=== PATIENT | female | born 1965 | race African-American/Black ===

== ENCOUNTER 2017-07-10 08:14 | Emergency (ER) | payer OTHER ==
[~2017-07-10] VITALS: Ht 182.9 cm; Wt 117.9 kg
[~2017-07-10 08:14] MED LIST: AMBIEN5 MG PO; ARTHROTEC 50 M1 EACH PO; BACLOFEN20 MG PO; BACTRIM DS TAB1 EACH PO; CLEOCIN HCL300 MG PO; DICLOFENAC SODI75 MG PO; ESCITALOPRAM OX20 MG PO; MECLIZINE HCL25 MG PO; METHOCARBAMOL750 MG PO; MINOCYCLINE HC100 M1 PO; NORCO 5-325 TA1 EACH PO; PERCOCET 5-3251 EACH PO; PHENDIMETRAZIN105 MG PO; PROMETHEGAN50 MG PR; ZOFRAN ODT4 MG SL; ZONISAMIDE25 MG PO
[2017-07-10] MEDS ORDERED: VITAMIN D250000 UNIT PO (08:40)
[2017-07-10] MEDS ORDERED: DULOXETINE HCL60 MG PO (08:41)
[2017-07-10] MEDS ORDERED: GABAPENTIN300 MG PO (08:41)
[2017-07-10] MEDS ORDERED: PHENTERMINE H37.5 M1 PO (08:41)
[2017-07-10] MEDS ORDERED: MINOCYCLINE HC100 MG PO (08:41)
[2017-07-10] MEDS ORDERED: DICLOFENAC SOD100 G1 TOP (08:42)
[2017-07-10] MEDS ORDERED: NORCO 7.5-3251 EACH PO (09:31)
[2017-07-11] MEDS ORDERED: KETOROLAC TROME10 MG PO (18:05)
== END 2017-07-10 10:00 | disposition home or self-care (01) ==
LOC: ED 08:14
DX: M25.511 Pain in right shoulder (principal); Z90.710 Acquired absence of both cervix and uterus; Z90.49 Acquired absence of other specified parts of digestive tract; Z98.890 Other specified postprocedural states; Z88.8 Allergy status to other drugs, medicaments and biological substances; Z79.899 Other long term (current) drug therapy
CPT/HCPCS: 73030; 96372; 99283; J1885

== ENCOUNTER 2017-07-11 16:41 | Emergency (ER) | payer OTHER ==
[~2017-07-11] VITALS: Ht 182.9 cm; Wt 117.9 kg
[~2017-07-11 16:41] MED LIST changes: +DICLOFENAC SOD100 G1 TOP; +DULOXETINE HCL60 MG PO; +GABAPENTIN300 MG PO; +MINOCYCLINE HC100 MG PO; +NORCO 7.5-3251 EACH PO; +PHENTERMINE H37.5 M1 PO; +VITAMIN D250000 UNIT PO
[2017-07-11] MEDS ORDERED: KETOROLAC TROME10 MG PO (18:05)
== END 2017-07-11 18:57 | disposition home or self-care (01) ==
LOC: ED 16:41
DX: M75.31 Calcific tendinitis of right shoulder (principal); Z90.710 Acquired absence of both cervix and uterus; Z90.49 Acquired absence of other specified parts of digestive tract; Z88.8 Allergy status to other drugs, medicaments and biological substances; Z98.890 Other specified postprocedural states
CPT/HCPCS: 96372; 99283; J1885

== ENCOUNTER 2017-08-01 05:45 | Day surgery (SDC) | payer OTHER ==
[~2017-08-01] VITALS: Ht 182.9 cm; Wt 117.9 kg
[~2017-08-01 05:45] MED LIST changes: +KETOROLAC TROME10 MG PO
--- NOTE | 2017-08-01 08:09 | NUR ---
08/01/17 0809 Harper Grubbs TO PACU, COUGHING NOTED. PROWICK DRESSING INTACT. PT DENIES PAIN OR NAUSEA.
[2017-08-01] MEDS ORDERED: OXYCODONE HCL5 MG PO (10:12)
--- NOTE | 2017-08-01 10:35 | NUR ---
PT ATE CRACKERS DRANK TEA. TOOK PAIN PILL FOR C/O HEADACHE. DENIES ANY SURGICAL PAIN. MOVES FINGERS HAS SOME TINGLY. CRYOCUFF HAS BEEN PLACED ON PT. SHE STATES SHE KNOWS HOW TO OPERATE HAS HAD BEFORE. WANTS TO GO HOME.
--- NOTE | 2017-08-08 07:01 | OR ---
[facility] [address] [place], [place] [address] Signed DATE OF OPERATION: 08/01/2017 SURGEON: Eveline Allan MD PREOPERATIVE DIAGNOSIS: Rotator cuff tendinitis, impingement, left. POSTOPERATIVE DIAGNOSIS: Rotator cuff tendinitis, impingement, left. PROCEDURE PERFORMED: Left shoulder arthroscopy with subacromial decompression, limited debridement and acromioplasty. SURGEON: Eveline Allan MD ASSISTANTS: 1. Julia Tinoco PA-C. 2. BAMBI Razo. Julia was present for the entire surgery and was critical for positioning, arm holding, and wound closure. ANESTHESIA: General with interscalene block. BLOOD LOSS: Minimal. IMPLANTS: None. BRIEF HISTORY: Joseline is a 51-year-old female with pain in her shoulder. She had undergone prior labral repair by me number of years ago. This was nonresponsive to treatment. Initially, her MRI showed calcific tendinitis, however, recent radiographs showed resolution of the calcium deposits, but continued pain, bursitis, and inability to use her arm. Risks, benefits, and alternatives were discussed with her and she elected to proceed. Electronically Signed By: EVELINE ALLAN MD 08/08/17 0701 PATIENT NAME: JOSELINE RICH OPERATIVE REPORT DATE OF : 69 PHYSICIAN: EVELINE ALLAN MD REPORT #: [id number] REPORT IS CONFIDENTIAL AND NOT TO BE RELEASED WITHOUT AUTHORIZATION [facility] [address] [place], [place] [address] Signed DESCRIPTION OF PROCEDURE: Once consent was obtained, she was taken to the operating room. After adequate anesthesia, she was placed in the beach chair position. All downside pressure points were well-padded. The left shoulder was prepped and draped in the standard sterile fashion. The shoulder was injected with 15 mL of 0.25% Marcaine with epinephrine as was the subacromial space. The prior posterior portal was incised and the scope was introduced in the shoulder. The shoulder showed mild synovitis throughout. The prior labral repair and sutures were intact and that healed adequately to the anterior glenoid. Undersurface of the rotator cuff was intact. Glenohumeral surfaces were intact. Biceps attachment rather were intact. Subacromial space showed marked thickening of the bursa with stranding scar bands and a type 3 to 3+ acromion. DESCRIPTION OF OPERATION: Diagnostic arthroscopy was undertaken as noted above. The scope was withdrawn from the shoulder, placed in the subacromial space and a mid-lateral portal was established and using a combination of the shaver and the Mitek vapor, the subacromial bursa was removed down to the rotator cuff and up to the acromion. The rotator cuff was noted to be completely intact. There were calcific residual granules of calcium in the bursa represented by cloudiness when you would hit certain spots in the bursa, as we were removing it. The undersurface of the acromion was quite hooked anteriorly. Using the shaver, we did flatten this anteriorly without detaching the deltoid substantially. This was checked by moving the camera to the lateral side and bringing the shaver in from the posterior portal indicating that it was quite flat. The scope was then withdrawn. All bleeders were cauterized using the vapor before removing the scope. The portals were closed with 3-0 nylon. Dressed with dressing. Her shoulder was injected with Toradol at the end of the case. She tolerated the procedure well. All sponge, needle, and instrument counts were correct. Eveline Allan MD BA/MODL /[id number] Electronically Signed By: EVELINE ALLAN MD 08/08/17 0701 PATIENT NAME: JOSELINE RICH ZOYA OPERATIVE REPORT DATE OF : 69 PHYSICIAN: EVELINE ALLAN MD REPORT #: [id number] REPORT IS CONFIDENTIAL AND NOT TO BE RELEASED WITHOUT AUTHORIZATION [facility] [address] [place] [address] [place] [address] Signed Electronically Signed By: EVELINE ALLAN MD 08/08/17 0701 PATIENT NAME: JOSELINE RICH OPERATIVE REPORT DATE OF : 69 PHYSICIAN: EVELINE ALLAN MD REPORT #: [id number] REPORT IS CONFIDENTIAL AND NOT TO BE RELEASED WITHOUT AUTHORIZATION
== END 2017-08-01 10:25 | disposition home or self-care (01) ==
LOC: DS 05:45
PROVIDERS: Specialist
PROC: 0RBK4ZZ Excision of Left Shoulder Joint, Percutaneous Endoscopic Approach (ICD-10-PCS; principal; 2017-08-01 06:45)
DX: M75.31 Calcific tendinitis of right shoulder (principal); M75.32 Calcific tendinitis of left shoulder; F32.9 Major depressive disorder, single episode, unspecified; E78.00 Pure hypercholesterolemia, unspecified; F41.0 Panic disorder [episodic paroxysmal anxiety]; G43.909 Migraine, unspecified, not intractable, without status migrainosus; K21.9 Gastro-esophageal reflux disease without esophagitis; E07.9 Disorder of thyroid, unspecified; G47.30 Sleep apnea, unspecified; Z99.81 Dependence on supplemental oxygen; Z79.899 Other long term (current) drug therapy; Z98.890 Other specified postprocedural states
CPT/HCPCS: 01630; 64415; 76942; J0330; J0690; J1100; J1885; J2250; J2704; J3010; J7120

== ENCOUNTER 2017-11-05 18:16 | Emergency (ER) | payer OTHER ==
[~2017-11-05] VITALS: Ht 182.9 cm; Wt 117.9 kg
[~2017-11-05 18:16] MED LIST changes: +OXYCODONE HCL5 MG PO
--- OUTSIDE RECORDS SUMMARY | 2017-11-05 18:31 | XMS | Clinical Summary ---
Demographics + + + | Address | [address] | | | [place] [address] | + + + | Home Phone | | + + + | Preferred Language | Unknown | + + + | Marital Status | Single | + + + | Holiness Affiliation | None | + + + | Race | Other Race | + + + | Ethnic Group | Not or | + + + Author + + + | Author | [facility] | + + + | Organization | [facility] | + + + | Address | Unknown | + + + | Phone | Unavailable | + + + Support + + +---------+ + | Name | Relationship | Address | Phone | + + +---------+ + | Nico Duke | ECON | Unknown | | + + +---------+ + Care Team Providers + +------+ + | Care Licensed Embalmer Supervisor Name | Role | Phone | + +------+ + | Franklyn Stephenson DO | PP | | + +------+ + Allergies Not on File Current Medications Not on file Active Problems Not on file Social History + +-------+ +--------+------+ | Tobacco Use | Types | Packs/Day | Years | Date | | | | | Used | | + +-------+ +--------+------+ | Never Assessed | | | | | + +-------+ +--------+------+ + + + | Sex Assigned at | Date Recorded | | | | + + + | Not on file | | + + + Plan of Treatment + + + + + | Health Maintenance | Due Date | Last Done | Comments | + + + + + | HIV Screening | | | | | | 3 | | | + + + + + | Tetanus | | | | | | 7 | | | + + + + + | Cervical Cancer | | | | | Screening | 9 | | | + + + + + | Breast Cancer | | | | | Screening | 8 | | | + + + + + | IMM Influenza (#1) | | | | | | 7 | | | + + + + + Results Not on filefrom Last 3 Months"
--- OUTSIDE RECORDS SUMMARY | 2017-11-05 18:31 | XMS | Clinical Summary ---
Demographics + + + | Address | [address] | | | [place] [address] | + + + | Home Phone | | + + + | Preferred Language | Unknown | + + + | Marital Status | Single | + + + | Anabaptist Affiliation | None | + + + [...] Team Providers + +------+ + | Care Erp Technical Lead Name | Role | Phone | + [...]
[2017-11-05] MEDS ORDERED: ZOFRAN ODT4 MG PO (20:05)
== END 2017-11-05 21:12 | disposition home or self-care (01) ==
LOC: ED 18:16
DX: K52.9 Noninfective gastroenteritis and colitis, unspecified (principal); Z87.891 Personal history of nicotine dependence; Z88.5 Allergy status to narcotic agent; Z88.8 Allergy status to other drugs, medicaments and biological substances; Z79.899 Other long term (current) drug therapy
CPT/HCPCS: 80053; 81001; 85025; 87502; 96374; 96375; 99283; J1170; J1885; J2405; J7030; J7120

== ENCOUNTER 2019-05-07 11:56 | Emergency (ER) | payer OTHER ==
[~2019-05-07] VITALS: Ht 182.9 cm; Wt 117.9 kg
[~2019-05-07 11:56] MED LIST changes: +ZOFRAN ODT4 MG PO
--- OUTSIDE RECORDS SUMMARY | 2019-05-07 11:58 | XMS ---
PreManage Notification: CAROLINE RICH Security Tetryl Screen Operator Events No recent Security Events currently on file CRITERIA MET - JENNIEP CARE PROVIDERS Luiz Allan Treatment Current PHONE: Unknown Nasrin has no Care Guidelines for this patient. Kassidy VISIT COUNT (12 MO.) 2 [facility] TOTAL 2 NOTE: Visits indicate total known visits. ED/UCC VISIT TRACKING (12 MO.) 05/07/2019 11:56 [facility] [place] TYPE: Emergency COMPLAINT: - DOG BITE 06/09/2018 18:23 [facility] [place] TYPE: Emergency COMPLAINT: - FLU LIKE SYMPTOMS DIAGNOSES: - Nausea with vomiting, unspecified - Personal history of nicotine dependence - Allergy status to narcotic agent status - Viral intestinal infection, unspecified - Other watermelon harvesting supervisor (current) drug therapy INPATIENT VISIT TRACKING (12 MO.) No inpatient visits to display in this time frame [email or web address]
[2019-05-07] MEDS ORDERED: AUGMENTIN 875-1 EACH PO (12:31)
== END 2019-05-07 13:00 | disposition home or self-care (01) ==
LOC: ED 11:56
PROC: 0HQEXZZ Repair Left Lower Arm Skin, External Approach (ICD-10-PCS; principal; 2019-05-07)
DX: S61.512A Laceration without foreign body of left wrist, initial encounter (principal); Z88.6 Allergy status to analgesic agent; Z79.899 Other long term (current) drug therapy; W54.0XXA Bitten by dog, initial encounter
CPT/HCPCS: 12002; 99283-25

== ENCOUNTER 2019-06-19 08:32 | Day surgery (SDC) | payer OTHER ==
[~2019-06-19] VITALS: Ht 182.9 cm; Wt 123.8 kg
[~2019-06-19 08:32] MED LIST changes: +AUGMENTIN 875-1 EACH PO; +CELEBREX100 MG PO; +DITROPAN XL10 MG PO
--- NOTE | 2019-06-19 11:10 | NUR ---
06/19/19 1110 Stephanie Pruitt 1105-PATIENT ARRIVED TO PACU ON 3L NC PLACED ON 2L RR EVEN. PATIENT AWAKE VERY DROWSY ASKING FOR 7-UP AND DOZES TO SLEEP. IVF INFUSING. ABDOMEN SOFT. HOB ELEVATED. PATIENT TOOK XANAX BEFORE PROCEDURE.
--- NOTE | 2019-06-19 13:12 | NUR ---
1200) VERY SLEEPY, WILL WAKE UP AND TALK BUT FALLS BACK TO SLEEP QUICK. 1300) AWAKE WALKED TO THE BATHROOM, WITHOUT COMPOLAINTS.
--- NOTE | 2019-06-19 13:36 | NUR ---
MET WITH PTS' PADMINI. HE WAS WAITING IN HALLWAY, MENTIONED THAT HE HAD SPOKEN TO THE DR AND PT WAS IN PACU. GAVE BLESSING, WILL FOLLOW NEEDED
--- NOTE | 2019-06-20 07:28 | OR ---
[facility] [address] [facility], [place] [address] Signed DATE OF OPERATION: 06/19/2019 SURGEON: Gopal Fairchild MD PREOPERATIVE DIAGNOSES: 1. Screening. 2. Chronic constipation. POSTOPERATIVE DIAGNOSES: 1. Kxluhck-dq-dhihlgmx sigmoid diverticulosis. 2. 4 mm polyps in cecum, 23 cm (x2) and 15 cm. PROCEDURE PERFORMED: Colonoscopy with hot biopsy. ESTIMATED BLOOD LOSS: None. INDICATIONS: Joseline is a 53-year-old female, asked to see me for her initial colonoscopy. She has no lower GI complaints. No evidence of colon cancer or polyps in her family. I know Sally has a caregiver. 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 Nevertheless, she was quite anxious about having her own colonoscopy. Consequently, we did give her Xanax prior to coming to the procedure. She did take that medication and even then it was difficult to sedate her with maximum amount of Versed and fentanyl. Consequently, she should consider monitored anesthesia care in the future with propofol. In the office, I did give her a pamphlet on colonoscopy. We went through that in detail. She understands the test along with its risks including, but not limited to gas bloating, crampy abdominal pain, bleeding, perforation requiring surgery, and missed diagnosis. We also reviewed the written instructions for the bowel prep line by line. She had expressed understanding wished to proceed. PROCEDURE NOTE: Joseline was taken into our endoscopy suite and placed in the left lateral decubitus position. She was given 2 mg of Xanax prior to coming to the procedure today. It was clear that the Xanax was working and even then we had to give her 12 mg of Versed and 200 mcg of fentanyl to cover the case. She was awake and groaning through much of the procedure. She was pushing back in the scope and made it quite difficult to advance the camera even under direct visualization with a good bowel prep. She finally relaxed enough that we went around hepatic flexure and into the cecum itself. I think for her Electronically Signed By: GOPAL FAIRCHILD MD 06/20/19 0728 PATIENT NAME: JOSELINE RICH OPERATIVE REPORT DATE OF : 69 REPORT #: [id number] PHYSICIAN: GOPAL FAIRCHILD MD PCP: LISSETT CHUNG MD REPORT IS CONFIDENTIAL AND NOT TO BE RELEASED WITHOUT AUTHORIZATION [facility] [address] [place], [place] [address] Signed own comfort and safety in the future, she would be much better served with monitored anesthesia care and propofol infusion. Certainly, as she gets older, the risk of perforation will be greater and one needs to be able to advance the scope with much less pressure. She did have a good prep. We could easily see the appendiceal orifice and the ileocecal valve. The above-mentioned polyps were easily removed with the help of hot biopsy forceps. The scope was then slowly withdrawn. She does have some diverticula in the sigmoid colon. They were moderate in size, minimal to moderate in number, and scattered about. The scope had been retroflexed in the rectum very little in the way of internal hemorrhoid tissue. After this, the gas was suctioned out and colonoscope removed. Joseline tolerated the procedure moderately well as we described above. RECOMMENDATIONS: Joseline will follow up in my office in 7 to 14 days to review her results. She should strongly consider monitored anesthesia care with propofol infusion in the future. Gopal Fairchild MD ALB/MODL /[id number] cc: MD Lissett Dougherty MD Copies: GOPAL FAIRCHILD MD, ROBERT D DMD ~ Electronically Signed By: GOPAL FAIRCHILD MD 06/20/19 0728 PATIENT NAME: JOSELINE RICH OPERATIVE REPORT DATE OF : 69 REPORT #: [id number] PHYSICIAN: GOPAL FAIRCHILD MD PCP: LISSETT CHUNG MD REPORT IS CONFIDENTIAL AND NOT TO BE RELEASED WITHOUT AUTHORIZATION
== END 2019-06-19 13:10 | disposition home or self-care (01) ==
LOC: OPS 08:32 → DS 08:40 → OPS 09:45
PROVIDERS: Colon & Rectal Surgery
PROC: 0DBE8ZZ Excision of Large Intestine, Via Natural or Artificial Opening Endoscopic (ICD-10-PCS; 2019-06-19)
PROC: 0DBH8ZZ Excision of Cecum, Via Natural or Artificial Opening Endoscopic (ICD-10-PCS; principal; 2019-06-19 09:45)
DX: Z12.11 Encounter for screening for malignant neoplasm of colon (principal); D12.0 Benign neoplasm of cecum; K63.5 Polyp of colon; K52.9 Noninfective gastroenteritis and colitis, unspecified; K57.30 Diverticulosis of large intestine without perforation or abscess without bleeding; E55.9 Vitamin D deficiency, unspecified; I10 Essential (primary) hypertension; E87.6 Hypokalemia; E03.9 Hypothyroidism, unspecified; Z98.890 Other specified postprocedural states; Z88.0 Allergy status to penicillin; Z88.5 Allergy status to narcotic agent; Z88.8 Allergy status to other drugs, medicaments and biological substances; Z79.899 Other long term (current) drug therapy
CPT/HCPCS: 99153; G0500; J2250; J3010

== ENCOUNTER 2019-08-08 08:14 | Emergency (ER) | payer OTHER ==
[~2019-08-08] VITALS: Ht 182.9 cm; Wt 123.8 kg
--- OUTSIDE RECORDS SUMMARY | 2019-08-08 08:16 | XMS ---
PreManage Notification: CAROLINE RICH Security Solution Make Up Operator Events No recent Security Events currently on file CRITERIA MET - JENNIEP CARE PROVIDERS LISSETT CHUNG Dentist: Construction Project Manager 05/07/2019-Current PHONE: [phone] Luiz Allan Current PHONE: Unknown LIAN ARAIZA Primary Care Current PHONE: [phone] Nasrin has no Care Guidelines for this patient. E.D. VISIT COUNT (12 MO.) [address] [facility] TOTAL 2 NOTE: Visits indicate total known visits. ED/UCC VISIT TRACKING (12 MO.) 08/08/2019 08:14 [facility] [place] TYPE: Emergency COMPLAINT: - BACK PAIN, LEG PAIN NON INJURY 05/07/2019 11:56 [facility] [place] TYPE: Emergency COMPLAINT: - DOG BITE DIAGNOSES: - Open bite of left wrist, initial encounter - Laceration without foreign body of left wrist, init encntr - Bitten by dog, initial encounter - Allergy status to analgesic agent status - Other fci (current) drug therapy INPATIENT VISIT TRACKING (12 MO.) No inpatient visits to display in this time frame [email or web address]
[2019-08-08] MEDS ORDERED: CYCLOBENZAPRINE10 MG PO (10:04)
[2019-08-08] MEDS ORDERED: NORCO 7.5-3251 EACH PO (10:04)
== END 2019-08-08 10:15 | disposition home or self-care (01) ==
LOC: ED 08:14
DX: S39.012A Strain of muscle, fascia and tendon of lower back, initial encounter (principal); X58.XXXA Exposure to other specified factors, initial encounter; Z87.891 Personal history of nicotine dependence; Z88.5 Allergy status to narcotic agent; Z88.8 Allergy status to other drugs, medicaments and biological substances; Z79.899 Other long term (current) drug therapy
CPT/HCPCS: 96372; 99283; A9270; J1885

== ENCOUNTER 2022-02-20 14:10 | Emergency (ER) | payer OTHER ==
[~2022-02-20] VITALS: Ht 182.9 cm; Wt 123.8 kg
[~2022-02-20 14:10] MED LIST changes: +CYCLOBENZAPRINE10 MG PO
--- OUTSIDE RECORDS SUMMARY | 2022-02-20 14:12 | XMS ---
PreManage Notification: CAROLINE RICH Security Senior Analyst Programmer Events No recent Security Events currently on file CRITERIA MET - PDMP CARE PROVIDERS LISSETT CHUNG Dentist: Lining Cutter 05/07/2019-Current PHONE: [phone] [facility] Current PHONE: Unknown Nasrin has no Care Guidelines for this patient. Kassidy VISIT COUNT (12 MO.) 1 [facility] Quintanilla TOTAL 1 NOTE: Visits indicate total known visits. ED/UCC VISIT TRACKING (12 MO.) 02/20/2022 14:11 [facility] [place] TYPE: Emergency COMPLAINT: - CHEST PAIN INPATIENT VISIT TRACKING (12 MO.) No inpatient visits to display in this time frame [email or web address]
[2022-02-20] MEDS ORDERED: OMEPRAZOLE20 MG PO (14:28)
[2022-02-20] MEDS ORDERED: HYDROCODON-ACE1 EA11 PO (15:38)
[2022-02-20] MEDS ORDERED: IBU600 MG PO (15:38)
--- NOTE | 2022-02-21 14:00 | EKG ---
[facility] [address] [facility] [place] [address] Signed Normal sinus rhythm Normal ECG When compared with ECG of 20-OCT-2016 15:35, No significant change was found Confirmed by RAYMON MARTIN MD ([id number]) on 02/21/2022 2:00:13 PM Electronically Signed By: RAYMON MARTIN MD 02/21/22 1400 PATIENT NAME: CAROLINE RICH ZOYA Electrocardiogram DATE OF : 69 PHYSICIAN: RAYMON MARTIN MD REPORT #: [id number] REPORT IS CONFIDENTIAL AND NOT TO BE RELEASED WITHOUT AUTHORIZATION
== END 2022-02-20 16:00 | disposition home or self-care (01) ==
LOC: ED 14:10
DX: J20.9 Acute bronchitis, unspecified (principal); R07.9 Chest pain, unspecified; Z87.891 Personal history of nicotine dependence; Z88.8 Allergy status to other drugs, medicaments and biological substances
CPT/HCPCS: 36415; 71045; 80053; 84484; 85025; 93005; 93010; J1170; J1885

== ENCOUNTER 2025-01-11 13:04 | Emergency (ER) | payer OTHER ==
[~2025-01-11] VITALS: Ht 182.9 cm; Wt 123.0 kg
[~2025-01-11 13:04] MED LIST changes: +HYDROCODON-ACE1 EA11 PO; +IBU600 MG PO; +OMEPRAZOLE20 MG PO
--- OUTSIDE RECORDS SUMMARY | 2025-01-11 13:11 | XMS ---
PreManage Notification: CAROLINE RICH Security Low Altitude Air Defense Gunner Events No recent Security Events currently on file CRITERIA MET - [facility] - 2 Visits in 30 Days CARE PROVIDERS LISSETT CHUNG Dentist: Fan Blade Aligner 05/07/2019-Current PHONE: [phone] -, [facility] Dentist: Fan Blade Aligner [facility] PHONE: [phone] -[place]- Dentist: Fan Blade Aligner [facility] PHONE: [phone] DAWOOD LEON Student in an Organized Health Care Current Education/Training Program PHONE: [phone] Nasrin has no Care Guidelines for this patient. Kassidy VISIT COUNT (12 MO.) [address] [place] [address] ME[facility] Quintanilla TOTAL 4 NOTE: Visits indicate total known visits. ED/UCC VISIT TRACKING (12 MO.) 01/11/2025 13:04 [facility] [place] TYPE: Emergency COMPLAINT: - BREAST PAIN 12/12/2024 12:41 [facility] TYPE: Emergency DIAGNOSES: - Calcaneal spur, right foot - Plantar fascial fibromatosis - Foot Pain - R Foot Injury 03/18/2024 08:27 [facility] TYPE: Emergency DIAGNOSES: - Acute kidney failure, unspecified - Dehydration - Headache, unspecified - Nausea with vomiting, unspecified - Unspecified abdominal pain - Abdominal Pain - Emesis - Fever (9 Weeks To 74 Years) 03/17/2024 14:56 [facility] TYPE: Emergency DIAGNOSES: - Strain of muscle, fascia and tendon of lower back, initial encounter - Strain of muscle, fascia and tendon of lower back, initial encounter - back pain INPATIENT VISIT TRACKING (12 MO.) No inpatient visits to display in this time frame [email or web address]
[2025-01-11] MEDS ORDERED: METFORMIN HCL500 M1 PO (13:37)
[2025-01-11] MEDS ORDERED: TRULICITY3 MG/0.5 M (13:37)
[2025-01-11] MEDS ORDERED: ZANAFLEX4 MG PO (13:39)
[2025-01-11] MEDS ORDERED: DUPIXENT P300 MG/2 M (13:39)
[2025-01-11] MEDS ORDERED: HYDROXYZINE HCL25 MG PO (13:40)
[2025-01-11] MEDS ORDERED: BUPROPION XL150 MG PO (13:40)
[2025-01-11] MEDS ORDERED: ANTIFUNGAL113 GM TOP (14:50)
[2025-01-11 14:55] VITALS: BP 120/63
== END 2025-01-11 14:55 | disposition home or self-care (01) ==
LOC: ED 13:04
DX: B37.2 Candidiasis of skin and nail (principal); N63.42 Unspecified lump in left breast, subareolar; E11.9 Type 2 diabetes mellitus without complications; G47.00 Insomnia, unspecified; Z79.84 Long term (current) use of oral hypoglycemic drugs; Z79.899 Other long term (current) drug therapy; Z88.6 Allergy status to analgesic agent; Z88.5 Allergy status to narcotic agent; Z87.891 Personal history of nicotine dependence
CPT/HCPCS: 99283